=== PATIENT | female | born 1980 | race Caucasian/White ===

== ENCOUNTER 2022-11-19 08:00 | Outpatient (CLI) | payer OTHER | END 2022-11-19 23:59 | disposition home or self-care (01) | LOC: LAB.N 08:00 | PROVIDERS: ATTEND Physician Assistant Medical | DX: R30.0 Dysuria (principal) | CPT/HCPCS: 87086; 87181 ==

== ENCOUNTER 2024-03-01 13:32 | Emergency (ER) | payer OTHER ==
[2024-03-01 13:58] LABS: BILIRUBIN,URINE NEGATIVE (NEGATIVE); GLUCOSE, URINE (UA) NEGATIVE (NEGATIVE); KETONES,URINE (UA) TRACE mg/dL (NEGATIVE); LEUKOCYTE ESTERASE, URINE TRACE (NEGATIVE); NITRITE,URINE NEGATIVE (NEGATIVE); OCCULT BLOOD,URINE SMALL (NEGATIVE); PROTEIN,URINE NEGATIVE (NEGATIVE); UROBILINOGEN,URINE 0.2 (NORMAL) E.U./dL (NORMAL)
[2024-03-01 14:14] LABS: BACTERIA,URINE Rare /HPF (None Seen); CLARITY,URINE CLEAR (CLEAR); HCG UR QUAL NEGATIVE; RBC,URINE 0-5 /HPF (0-5); SQUAMOUS EPITHELIAL CELL,UR MANY Squamous (<= Few)
[2024-03-01 14:26] LABS: BASOPHILS % (AUTO) 0.6 %; EOSINOPHILS % (AUTO) 0.2 %; HCT - HEMATOCRIT 41.9 % (37.0-47.0); HGB - HEMOGLOBIN 14.3 g/dL (12.0-16.0); LYMPHOCYTES % (AUTO) 30.4 %; MEAN CORPUSCULAR HEMOGLOBIN 33.1 pg (27.0-31.0); MEAN CORPUSCULAR HGB CONC 34.1 g/dL (32.0-36.0); MEAN PLATELET VOLUME 10.2 fL (7.9-10.8); MONOCYTES # (AUTO) 0.6 10^3/uL (0.0-1.0); MONOCYTES % (AUTO) 8.7 %; NEUTROPHILS # (AUTO) 3.9 10^3/uL (1.5-6.6); NEUTROPHILS % (AUTO) 59.9 %; PLT - PLATELET COUNT 229 10^3/uL (130-450); RED BLOOD COUNT 4.32 10^6/uL (4.20-5.40); RED CELL DISTRIBUTION WIDTH 12.1 % (12.0-15.0); WHITE BLOOD COUNT 6.5 x10^3/uL (4.8-10.8)
[2024-03-01 14:39] LABS: ALBUMIN 4.5 g/dL (3.2-5.5); ALBUMIN/GLOBULIN RATIO 1.8 (1.0-2.2); BILIRUBIN,TOTAL 0.7 mg/dL (0.2-1.0); CALCIUM 10.4 mg/dL (8.5-10.3); CREATININE 0.8 mg/dL (0.6-1.3); POTASSIUM 3.9 mmol/L (3.5-4.5)
--- NOTE | 2024-03-01 15:25 | ED Physician Documentation ---
History of Present Illness - Stated complaint Stated Complaint: ABD PX,NAUSEA - Chief complaint Chief Complaint: Abd Pain - History of Present Illness Timing: Prior to arrival - Additonal information Additional information: Patient is a 44-year-old female presenting to the emergency department with abdominal pain nausea. Patient notes pain to the epigastric region radiating from right upper quadrant to epigastric region and then radiating to upper back as well. Patient notes she had similar symptoms when she was being evaluated for cholecystectomy. She attempted to be intubated for the surgery but during the surgery she became hypoxic and was woken up from the surgery and no cholecystectomy was performed. Patient notes she did not follow-up she moved to the [place] within this last year and has not seen anyone else for her symptoms. She notes over the last 3 to 4 weeks she has some worsening abdominal pain and nausea after eating or drinking any food. She notes it is worsened over the last week and then [facility] fatty foods including meat loaf that she felt worsened her epigastric symptoms. She takes omeprazole for gastritis symptoms but no other medications. She denies any fevers or chills at home. She denies any urinary dysuria but does report frequency. PD PAST MEDICAL HISTORY - Past Medical History Past Medical History: Yes - Past Surgical History Past Surgical History: Yes Ortho: Other HEENT: Tonsil/Adenoidectomy - Present Medications Home Medications: Ambulatory Orders Medication Instructions Recorded Confirmed Acetaminophen [Tylenol] 1 tab PO PRN PRN 03/01/24 03/01/24 Ciprofloxacin HCl [Cipro] 500 mg PO BID #20 tablet 03/01/24 Ferrous Bis-Glycinate Chelate 1 cap PO DAILY 03/01/24 03/01/24 [Iron Bisglycinate] Ondansetron Odt [Zofran] 4 mg TL Q6H PRN #10 tablet 03/01/24 Pantoprazole [Protonix] 40 mg PO BID #20 tablet 03/01/24 - Allergies Allergies/Adverse Reactions: Allergies Allergy/AdvReac Type Severity Reaction Status Date / Time Penicillins Allergy Anaphylaxis Verified 03/01/24 13:38 - Social History Does the pt smoke?: No Smoking Status: Former smoker Does the pt drink ETOH?: No Does the pt have substance abuse?: No - Immunizations Immunizations are current?: Yes - POLST Patient has POLST: No PD ED PE NORMAL - General General: Alert and oriented X 3 - HEENT HEENT: Atraumatic - Neck Neck: Supple, no meningeal sign - Cardiac Cardiac: RRR, No murmur, No gallop, No rub - Respiratory Respiratory: No respiratory distress, Clear bilaterally - Abdomen Abdomen: Normal bowel sounds, Soft, Non distended, Other (Right upper quadrant tenderness on examination with positive Winston sign on exam. No significant rebound or guarding on examination of abdomen otherwise. No acute abdomen.) - Back Back: Other (Right CVA tenderness on examination.) - Derm Derm: Normal color, No rash - Neuro Neuro: Alert and oriented X 3 Eye Opening: Spontaneous Motor: Obeys Commands Verbal: Oriented GCS Score: 15 Results - Vitals Vitals: Vital Signs - 24 hr 03/01/24 03/01/24 03/01/24 13:39 15:43 17:00 Temperature 36.5 C Heart Rate 82 76 76 Respiratory 16 16 14 Rate Blood Pressure 150/88 H 110/74 119/76 O2 Saturation 98 100 98 Oxygen O2 Source Room air - Labs Labs: Laboratory Tests 03/01/24 03/01/24 03/01/24 13:50 14:20 14:20 WBC 6.5 RBC 4.32 Hgb 14.3 Hct 41.9 MCV 97.0 MCH 33.1 H MCHC 34.1 RDW 12.1 Plt Count 229 MPV 10.2 Neut # (Auto) 3.9 Lymph # (Auto) 2.0 [place] # (Auto) 0.6 Eos # (Auto) 0.0 Baso # (Auto) 0.0 Absolute Nucleated RBC 0.00 Nucleated RBC % 0.0 Sodium 135 Potassium 3.9 Chloride 102 Carbon Dioxide 27 Anion Gap 6.0 BUN 11 Creatinine 0.8 Estimated GFR (MDRD) 78 L Glucose 102 Calcium 10.4 H Total Bilirubin 0.7 AST 11 ALT 9 L Alkaline Phosphatase 52 Total Protein 7.0 Albumin 4.5 Globulin 2.5 Albumin/Globulin Ratio 1.8 Lipase 31 Urine Color YELLOW Urine Clarity CLEAR Urine pH 7.0 Ur Specific [place] 1.015 Urine Protein NEGATIVE Urine Glucose (UA) NEGATIVE Urine Ketones TRACE Urine Occult Blood SMALL H Urine Nitrite NEGATIVE Urine Bilirubin NEGATIVE Urine Urobilinogen 0.2 (NORMAL) Ur Leukocyte Esterase TRACE H Urine RBC 0-5 Urine WBC 6-10 H Ur Squamous Epith Cells MANY Squamous H Urine Bacteria Rare Ur Microscopic Review INDICATED Urine Culture Comments NOT INDICATED Urine HCG, Qual NEGATIVE PD Medical Decision Making - ED course Complexity details: reviewed old records, reviewed results, re-evaluated patient ED course: Patient is a 44-year-old female presenting to the emergency department with upper abdominal pain nausea symptoms have been going on for a few weeks now but slowly worsening. Patient notes pain was worse last night with nausea symptoms as well as she has had barbecue last night and has been unable to eat since then. She denies any fevers associated with her symptoms. She notes pain is in epigastric region radiating to her back. Vital stable on arrival she is afebrile nontachycardic. Physical exam shows right upper quadrant pain with Winston sign on exam. She has some right CVA tenderness on examination but no other acute findings. UA here does show some squamous cells but also blood in the urine as well as leukocytes will cover with ciprofloxacin at home for concerns for possible pyelonephritis causing patient's symptoms. Will call patient on culture results if no significant CFU. Labs otherwise normal no signs of leukocytosis no elevation in bilirubin or LFTs here in emergency department. Ultrasound performed here in the emergency department shows Cholelithiasis without evidence of cholecystitis. Mild hepatomegaly. And no dilated bile ducts on examination. Patient given Toradol for pain control Zofran for nausea she is given food to eat and feeling significantly better. Discussed with patient she is most likely having symptomatic gallstones. Patient given referral for general surgery as she most likely will need to have gallbladder removed if symptoms have been so persistent. Instructed patient she should return with any fevers severe abdominal pain nausea vomiting that does not resolve or any other new or worsening symptoms. She was instructed to follow a fat-free diet and drink lots of fluids at home. Patient instructed to call general surgery on Saturday for follow-up appointment. Patient understands and is agreeable with this plan. Departure - Departure Disposition: Home, Self Care Clinical Impression: Symptomatic cholelithiasis, Right upper quadrant abdominal pain, UTI (urinary tract infection), Hematuria, Pyelonephritis Condition: Good Follow-Up: Doyle Barbosa MD [Provider Admit Priv/Credential] - Comments: . You were seen here in the emergency department for your right upper quadrant pain your workup here showed gallstones and gallbladder which is known as symptomatic cholelithiasis. I have given you a general surgeon follow-up number so you can see him in the outpatient setting as he most likely will require your gallbladder to be removed. However if you develop right upper quadrant pain worsening nausea vomiting fevers you need to immediately return to the emergency department. These are other signs of infection to your gallbladder. I have given you medications to help with your symptoms at home and please avoid fatty food diet as this will cause worsening right upper quadrant pain additionally if findings consistent with UTI. This could be contributing to your back pain associated with your symptoms as well. Has started you on antibiotics please take as prescribed to ensure no worsening UTI. I will call you on culture results in the outpatient setting. Please follow-up with PCP in 1 week to ensure resolution of symptoms. Forms: PCP List
[2024-03-01] MEDS: ONDANSETRON 4 MG/2 ML VIAL IVP STA (17:53)
--- NOTE | 2024-03-01 17:55 | Ultrasound Report ---
PROCEDURE: Abdomen Limited INDICATIONS: RUQ PAIN and nausea TECHNIQUE: Real-time focused scanning was performed of the abdomen, with image documentation. COMPARISONS: None. FINDINGS: Liver: Liver is normal in morphology and homogeneous in echotexture. Length = 18.3 cm Gallbladder: Multiple shadowing stones are seen within the gallbladder measuring up to 1.3 cm. There is no wall thickening or pericholecystic fluid. Sonographic Winston's sign is not reported. Biliary ducts: Intrahepatic bile ducts are non-dilated. Extrahepatic bile duct caliber measures 4 m m, within normal limits. Pancreas: Visualized portions of the pancreas are sonographically normal. Right kidney: Normal in size and echotexture. Right kidney measures 10.3 cm long. No hydronephrosis or nephrolithiasis. No solid masses. No complex renal cystic lesions which require follow-up. IVC: Intrahepatic inferior vena cava is patent. Miscellaneous: No free abdominal fluid. IMPRESSION: Cholelithiasis without evidence of cholecystitis. Mild hepatomegaly. Reviewed by: Sandra Sanabria MD on 03/01/2024 4:53 PM ERNESTO Approved by: Sandra Sanabria MD on 03/01/2024 4:53 PM ERNESTO Station ID: [id number]
[2024-03-01] MEDS: PANTOPRAZOLE 40 MG VIAL IVP STA (18:16)
[2024-03-01] MEDS: KETOROLAC 15 MG/ML VIAL IVP STA (18:16)
[2024-03-01 19:15] VITALS: BP 122/76; O2SAT 100
== END 2024-03-01 19:08 | disposition home or self-care (01) ==
LOC: ED 13:32
DX: K80.20 Calculus of gallbladder without cholecystitis without obstruction (principal); N12 Tubulo-interstitial nephritis, not specified as acute or chronic; Z32.02 Encounter for pregnancy test, result negative
CPT/HCPCS: 36415; 80053; 81001; 81003; 81025; 83690; 85025; 87086; 96374; 96375; 99283